=== PATIENT | male | born 1995 | race Caucasian/White ===

== ENCOUNTER → 2021-07-01 | Outpatient (CLI) | payer OTHER, MEDICAID, SELFPAY | END | disposition home or self-care (01) | LOC: LABSPEC 14:22 | PROVIDERS: Referring Provider Physician Assistant; Visit Provider Physician Assistant | DX: Z11.52 Encounter for screening for COVID-19 (principal) | CPT/HCPCS: 87635; U0005; U0003 ==

== ENCOUNTER 2021-08-20 18:59 | Emergency (ER) | payer MEDICAID, SELFPAY ==
[2021-08-20 19:00] VITALS: BP 151/88; PULSE 93; RESP 16; TEMP 36.8; O2SAT 98; BMI 32.7
--- NOTE | 2021-08-20 19:33 | EX.ED.DYSGE1 ---
HPI History of Present Illness Chief Complaint: Rash Narrative Narrative: Patient is a 26-year-old male who states he was chopping firewood and then developed a rash to his arms and legs and a little bit across his face and abdomen. He states that he has been trying topical creams with minimal symptom improvement and secondary to this comes in for evaluation. He denies any new exposure other than the environmental exposure and otherwise has no fevers chills chest pain or shortness of breath. PFSH PFSH Medical History no medical history no medical history Home Medications prednisone 10 mg PO DAILY #45 tab 08/20/21 [Rx Last Taken Unknown] Allergy/AdvReac Type Severity Reaction Status Date / Time No Known Allergies Allergy Verified 08/20/21 19:00 Social History Smoking Status: Unknown if ever smoked ROS ROS ED Constitutional Constitutional ED: Denies chills or fever(s) ENT ENT ED: Denies sore throat Cardiovascular Cardiovascular: Denies chest pain Respiratory/Chest Respiratory/Chest: Denies cough or dyspnea Gastrointestinal Gastrointestinal: Denies abdominal pain, diarrhea, nausea or vomiting Genitourinary Genitourinary ED: Denies dysuria Musculoskeletal Musculoskeletal: Denies myalgias Integumentary Reports rash Neurologic Neurologic: Denies headache(s) EXAM Physical Exam Const Vital Signs: 08/20/21 19:00 Temperature 98.3 F Temperature Source Temporal Pulse Rate 93 Respiratory Rate 16 Blood Pressure 151/88 H Blood Pressure Mean 109 Pulse Ox 98 Oxygen Delivery Method Room Air Positive well nourished and well developed General Appearance ED: well developed HEENT Reports moist mucous membranes HEENT Narrative: No tongue or lip swelling no oral lesions no airway edema or compromise Eyes PERRL and EOMs intact bilaterally Neck supple Resp normal respiratory effort and clear to auscultation bilaterally Cardio regular rate and regular rhythm Extremity normal to inspection Neuro oriented x3 and CN's II-XII intact bilaterally Sensorium / Orientation: alert Motor Exam: strength 5/5 throughout Psych mental status grossly normal Skin Skin Narrative: Patient has diffuse blanchable erythema with vesicular changes across his bilateral arms lower legs and scant areas along his lower abdomen most consistent with contact dermatitis. No obvious abscess formation or cellulitis. No involvement of the palms or soles MDM MDM MDM Narrative Medical decision making narrative: Patient presented to the ER in no acute respiratory distress with no airway edema or compromise. His history and exam is consistent with contact dermatitis. Therefore at this time he will be given a Kenalog shot and placed on a prednisone taper but is otherwise safe for discharge with no secondary changes to suggest respiratory distress or systemic infection Discharge Plan Triage Chief Complaint: Rash ED Provider: Jack Pascal Dx/Rx/DC Orders Clinical Impression: Contact dermatitis Instructions: ED Contact Dermatitis Prescriptions: New prednisone 10 mg tablet 10 mg PO DAILY Qty: 45 RF: 0 Primary Care Provider: Donna Rodriguez,Out of Referrals: [facility] Doctor,Out of [Primary Care Provider] - Disposition Disposition: Home, Self Care
[2021-08-20] MEDS: Triamcinolone Acetonide 40 MG/ML Vial 80 MG IM (19:47)
[2021-08-20 20:05] VITALS: BP 151/92; PULSE 89
== END 2021-08-20 20:08 | disposition home or self-care (01) ==
LOC: ED 19:44
PROVIDERS: Emergency Provider Emergency Medicine; PCP Student in an Organized Health Care Education/Training Program
DX: L25.9 Unspecified contact dermatitis, unspecified cause (principal)
CPT/HCPCS: 96372; 99282

== ENCOUNTER 2025-07-01 20:22 | Emergency (ER) | payer MEDICAID, SELFPAY ==
--- OUTSIDE RECORDS SUMMARY | 2025-04-19 08:14 | XMS RPT_ITS ---
Author Name Auto Generated Organization [facility] Care Team Providers Care Human Service Technician Name Role Phone SELF Referring Unavailable BRIAN LAI Attending Unavailable MOLLY PRECIADO SPRUE CUTTING PRESS OPERATOR%NUTRIENT MANAGEMENT SPECIALIST Attending UnavailMOLLY Meehan SPRUE CUTTING PRESS OPERATOR%NUTRIENT MANAGEMENT SPECIALIST Primary Care UnavailMOLLY Meehan SPRUE CUTTING PRESS OPERATOR%NUTRIENT MANAGEMENT SPECIALIST Admitting UnavailLEEANNA Suarez MD Consulting Unavailable PROVIDER, UNKNOWN Consulting Unavailable PROVIDER, UNKNOWN Consulting Unavailable PROBLEMS DATE TYPE CONDITION / CODE ATTENDING STATUS [facility] 04/19/2025 Active Viral gastroente ritis / A08.4(ICD-10) BRIAN LAI Active [facility] 04/19/2025 Active Diarrhea, unspec ified type / R19.7(ICD-10) BRIAN LAI Active [facility] 04/19/2025 Active Nausea / R11.0(ICD-10) KASANDRA LAI Active [facility] PROCEDURES No Procedure Records Found RESULTS PROGRESS Observed: 04/19/2025 8:46 AM Status: COMPLETED Source: [facility] HNO ID: [id number] Author: BRIAN LAI DO Service: ? Author Type: Physician Type: Progress Notes Filed: 04/19/2025 09:14 Note Text: [facility] KEVIN Subjective Feng Mijares is a 30 year old male. 30 yo M presents with N/V/D x2 days. Pt states he had 5 episodes of diarrhea this morning, coming out watery. He states anytime he eats or drinks anything it will come right out. No new foods, no recent travel, no known exposures to food poisoning. He had [employer] on Tuesday. Pt states he threw up twice yesterday morning, no other episodes of vomiting. The history is provided by the patient. Review of Systems Constitutional: Negative for fatigue and fever. Gastrointestinal: Positive for diarrhea and nausea. Negative for abdominal pain and blood in stool. Neurological: Negative for dizziness and light-headedness. Objective BP 114/78 (BP Site: Left Arm, BP Position: Sitting, BP Cuff Size: Large Adult) Pulse 76 Temp 36.8 ?C (98.3 ?F) (Temporal) Ht 198.1 cm (6' 6) Wt 127.2 kg (280 lb 5 oz) SpO2 98% BMI 32.39 kg/m? Physical Exam Vitals and nursing note reviewed. Constitutional: General: He is not in acute distress. Appearance: Normal appearance. He is not ill-appearing, toxic-appearing or diaphoretic. HENT: Head: Normocephalic and atraumatic. Eyes: Extraocular Movements: Extraocular movements intact. Pulmonary: Effort: Pulmonary effort is normal. No respiratory distress. Neurological: General: No focal deficit present. Mental Status: He is alert and oriented to person, place, and time. Psychiatric: Behavior: Behavior normal. {ASSESSMENT/PLAN: 1. Viral gastroenteritis - ICD9: 008.8, ICD10: A08.4 (primary diagnosis) Patient does not have any risk factors for Salmonella, E. coli, norovirus, parasitic diarrheal infection. His symptoms are not consistent with IBS or IBD. I believe he has a viral GE. - Advised patient these types of stomach bugs are self-limiting, and should resolve within 72 hours - Will give Zofran to help slow down diarrhea and treat nausea so patient can stay hydrated - If unable to keep fluids down or in and started to get signs of dehydration, go to the emergency room for IV treatments - If diarrhea persists over the weekend, follow-up with PCP or return urgent care to submit a stool culture to [facility] for other types of diarrheal illnesses - Patient agrees with plan of care - Work note given - ONDANSETRON 4 MG DISINTEGRATING TABLET 2. Diarrhea, unspecified type - ICD9: 787.91, ICD10: R19.7 3. Nausea - ICD9: 787.02, ICD10: R11.0 - ONDANSETRON 4 MG DISINTEGRATING TABLET Brian Lai DO Differential Diagnoses - Viral gastroenteritis - Food poisoning is less likely for the following reason(s): HANDP not suggestive - Parasitic diarrhea is less likely for the following reason(s): HANDP not suggestive - IBS is less likely for the following reason(s): HANDP not suggestive - IBD is less likely for the following reason(s): HANDP not suggestive Additional Tests or Interventions The following testing was considered but ultimately not selected after discussion with patient/family: Stool culture. Symptoms have been ongoing x 48 hours and are improving, suspect viral GE. Disposition The patient was discharged. Procedures CNOV Observed: 04/19/2025 8:15 AM Status: COMPLETED Source: [facility] Office Visit ([facility]) MARYANAFENG R ([id number]) 1995 M Date Time Provider Department 04/19/25 8:15 AM BRIAN LAI [facility] During your visit today, we recorded the following information about you: Temperature Pulse Blood pressure Weight 98.3 degrees 76/minute 114/78 127.2 kg Height 1.981 m Brian Lai DO 04/19/2025 9:14 AM Signed [facility] Subjective Feng Mijares is a 30 year old male. 30 yo M presents with N/V/D x2 days. Pt states he had 5 episodes of diarrhea this morning, coming out watery. He states anytime he eats or drinks anything it will come right out. No new foods, no recent travel, no known exposures to food poisoning. He had D[employer] Aragon on Tuesday. Pt states he threw up twice yesterday morning, no other episodes of vomiting. The history is provided by the patient. Review of Systems Constitutional: Negative for fatigue and fever. Gastrointestinal: Positive for diarrhea and nausea. Negative for abdominal pain and blood in stool. Neurological: Negative for dizziness and light-headedness. Objective BP 114/78 (BP Site: Left Arm, BP Position: Sitting, BP Cuff Size: Large Adult) Pulse 76 Temp 36.8 ?C (98.3 ?F) (Temporal) Ht 198.1 cm (6' 6) Wt 127.2 kg (280 lb 5 oz) SpO2 98% BMI 32.39 kg/m? Physical Exam Vitals and nursing note reviewed. Constitutional: General: He is not in acute distress. Appearance: Normal appearance. He is not ill-appearing, toxic-appearing or diaphoretic. HENT: Head: Normocephalic and atraumatic. Eyes: Extraocular Movements: Extraocular movements intact. Pulmonary: Effort: Pulmonary effort is normal. No respiratory distress. Neurological: General: No focal deficit present. Mental Status: He is alert and oriented to person, place, and time. Psychiatric: Behavior: Behavior normal. {ASSESSMENT/PLAN: 1. Viral gastroenteritis - ICD9: 008.8, ICD10: A08.4 (primary diagnosis) Patient does not have any risk factors for Salmonella, E. coli, norovirus, parasitic diarrheal infection. His symptoms are not consistent with IBS or IBD. I believe he has a viral GE. - Advised patient these types of stomach bugs are self-limiting, and should resolve within 72 hours - Will give Zofran to help slow down diarrhea and treat nausea so patient can stay hydrated - If unable to keep fluids down or in and started to get signs of dehydration, go to the emergency room for IV treatments - If diarrhea persists over the weekend, follow-up with PCP or return urgent care to submit a stool culture to [facility] for other types of diarrheal illnesses - Patient agrees with plan of care - Work note given - ONDANSETRON 4 MG DISINTEGRATING TABLET 2. Diarrhea, unspecified type - ICD9: 787.91, ICD10: R19.7 3. Nausea - ICD9: 787.02, ICD10: R11.0 - ONDANSETRON 4 MG DISINTEGRATING TABLET Brian Lia DO Differential Diagnoses - Viral gastroenteritis - Food poisoning is less likely for the following reason(s): HANDP not suggestive - Parasitic diarrhea is less likely for the following reason(s): HANDP not suggestive - IBS is less likely for the following reason(s): HANDP not suggestive - IBD is less likely for the following reason(s): HANDP not suggestive Additional Tests or Interventions The following testing was considered but ultimately not selected after discussion with patient/family: Stool culture. Symptoms have been ongoing x 48 hours and are improving, suspect viral GE. Disposition The patient was discharged. Procedures Mike BrianDO 04/19/2025 8:52 AM Signed DI[facility] Diarrhea can be caused by many different conditions. The most common cause is viral illness. Food poisoning, bacterial infection, and reactions to medicine (especially antibiotics and antacids) may also be the cause. Most of the time diarrhea improves after 2-3 days of rest and oral fluid replacement. You should drink enough clear fluids (water, sodas, Gatorade) to prevent dehydration. Adults must drink at least 2-3 quarts daily. Solid foods and dairy products must be avoided until your illness improves; then only small amounts may be included in your diet for several days. Medicine to control cramping and diarrhea may be helpful. If you have a fever or blood in the stool, however, these medicines should be avoided as they may prolong your illness. Antibiotics can speed recovery from diarrhea due to some bacterial infections, but may cause complications. Please call your doctor or the emergency department if your diarrhea does not get better in 3 days, or if you have fever, blood in the stool, vomiting, or become more dehydrated. Patient presents with: Nausea: Feng is here for nausea, diarrhea and vomiting 3x days. I recommend you follow up with your Primary Care Provider (Physician, Nurse Practitioner, or Physician Home Care Consultant). YOU SHOULD SEEK MEDICAL ATTENTION IMMEDIATELY AT THE NEAREST EMERGENCY DEPARTMENT IF ANY OF THE FOLLOWING OCCURS Call 911 if you have chest pain, heaviness or discomfort Fever (temperature higher than 100.4? F / 38? C) and it doesn't go away or gets worse after 2-3 days of antibiotics Unusual or increasing pain Lightheadedness Feeling sicker at any time or not getting better as expected Can't catch your breath or have shortness of breath Were seen for eye problems and have eye pain, changes/blurring of vision, or the light hurts your eyes and/or you have a fever Were seen for wound/skin infection issues and your wound/infection has increasing redness/swelling/pain, red streaking towards your heart, or green/yellow drainage Were seen for a headache and have any worsening of headache/dizziness or you develop a stiff neck or any other concerns about your headache Were seen for stomach/abdominal complaints and your diarrhea/vomiting/pain worsens and/or you don't urinate in an 8 hour period of time Develop swelling of your lips/face/tongue/throat or think you are having an allergic reaction to any medications Please read all pharmacy handouts regarding possible medication side effects and/or adverse reactions. Call your Primary Care Provider with any questions or concerns. Follow up with your Primary Care Provider if you require any follow up care. Urgent/Express Care and Walk In Clinics do not provide follow up care. Referring Provider: SELF [[id number]] Allergies As of Date: 04/19/2025 (No Known Allergies) Date Reviewed: 04/19/2025 Reviewed by: Brian Lai DO - Fully Assessed Reason for Visit: Nausea [70] Cmt: Feng is here for nausea, diarrhea and vomiting 3x days. Primary Visit Diagnosis:Viral gastroenteritis [A08.4] Other Visit Diagnoses:Diarrhea, unspecified type [R19.7] Nausea [R11.0] Order(s):ondansetron orally disintegrating (ZOFRAN ODT) 4 mg disintegrating tabletTake 1 tablet by mouth every 8 hours as needed for nausea/vomiting.Disp: 30 tabletRfl: 0 Prescriptions as of 04/19/2025 - ondansetron orally disintegrating (ZOFRAN ODT) 4 mg disintegrating tablet Take 1 tablet by mouth every 8 hours as needed for nausea/vomiting. Problem List As Of Date: 04/19/2025 (None) Other instructions from your clinician: DIARRHEA Diarrhea can be caused by many different conditions. The most common cause is viral illness. Food poisoning, bacterial infection, and reactions to medicine (especially antibiotics and antacids) may also be the cause. Most of the time diarrhea improves after 2-3 days of rest and oral fluid replacement. You should drink enough clear fluids (water, sodas, Gatorade) to prevent dehydration. Adults must drink at least 2-3 quarts daily. Solid foods and dairy products must be avoided until your illness improves; then only small amounts may be included in your diet for several days. Medicine to control cramping and diarrhea may be helpful. If you have a fever or blood in the stool, however, these medicines should be avoided as they may prolong your illness. Antibiotics can speed recovery from diarrhea due to some bacterial infections, but may cause complications. Please call your doctor or the emergency department if your diarrhea does not get better in 3 days, or if you have fever, blood in the stool, vomiting, or become more dehydrated. Patient presents with: Nausea: Feng is here for nausea, diarrhea and vomiting 3x days. I recommend you follow up with your Primary Care Provider (Physician, Nurse Practitioner, or Physician Home Care Consultant). YOU SHOULD SEEK MEDICAL ATTENTION IMMEDIATELY AT THE NEAREST EMERGENCY DEPARTMENT IF ANY OF THE FOLLOWING OCCURS Call 911 if you have chest pain, heaviness or discomfort Fever (temperature higher than 100.4? F / 38? C) and it doesn't go away or gets worse after 2-3 days of antibiotics Unusual or increasing pain Lightheadedness Feeling sicker at any time or not getting better as expected Can't catch your breath or have shortness of breath Were seen for eye problems and have eye pain, changes/blurring of vision, or the light hurts your eyes and/or you have a fever Were seen for wound/skin infection issues and your wound/infection has increasing redness/swelling/pain, red streaking towards your heart, or green/yellow drainage Were seen for a headache and have any worsening of headache/dizziness or you develop a stiff neck or any other concerns about your headache Were seen for stomach/abdominal complaints and your diarrhea/vomiting/pain worsens and/or you don't urinate in an 8 hour period of time Develop swelling of your lips/face/tongue/throat or think you are having an allergic reaction to any medications Please read all pharmacy handouts regarding possible medication side effects and/or adverse reactions. Call your Primary Care Provider with any questions or concerns. Follow up with your Primary Care Provider if you require any follow up care. Urgent/Express Care and Walk In Clinics do not provide follow up care. Prescriptions ordered this encounter Disp Refills Start End ONDANSETRON 4 MG DISINTEGRATING TABL* 30 t* 0 04/19/2025 Route: PO Sig: Take 1 tablet by mouth every 8 hours as needed for nausea/vomiting. Level of Service: OFFICE/OUTPATIENT ESTABLISHED LOW MDM 20 MIN [[id number]] Letter Text Encounter Status:Closed by BRIAN LAI on 04/19/25 ALLERGIES DATE TYPE / CODE NAME / CODE REACTION SEVERITY SOURCE Drug Class/[id number] (SNOMED CT) NO KNOWN ALLERGIES [facility] Drug Allergy/5604703 02(SNOMED CT) DIPHENHYDRAMINE/0000 0333(RXNORM) Moderate (Severity Modifier) (Qualifier Value) [facility] ENCOUNTERS ADMIT/DISCHARGE ACCOUNT NUMBER ADMITTING ENCOUNTER CLASS LOCATION SOURCE 04/19/2025/ 5 [id number] Ambulatory [id number] ilding:[facility] 08/27/2024 [id number] MOLLY PRECIADO SPRUE CUTTING PRESS OPERATOR%NUTRIENT MANAGEMENT SPECIALIST Ambulatory Building:[facility] PAYERS ENCOUNTER GUARANTOR PAYER SUBSCRIBER SOURCE 08/27/2024 FENG SAMANIEGO: [id number] [address] [address]Wgu: () Primary Insurance:[facility] Number: [id number] Date:Plan Name:X3 FENG SAMANIEGO: [id number] [address] [address] [facility]
[2025-07-01 20:22] VITALS: BP 153/91; PULSE 106; RESP 16; TEMP 36.6; O2SAT 98; BMI 35.2
--- NOTE | 2025-07-01 20:49 | RAD_ITS ---
PROCEDURE: KNEE 4 OR MORE VIEWS 07/01/2025 REASON FOR EXAM: PAIN/INJURY TECHNIQUE: Procedure Code: RADKN Modality: DX Procedure: KNEE 4 OR MORE VIEWS Laterality: FINDINGS: No evidence of acute fracture or dislocation. The joint spaces are maintained. No knee joint effusion. Prepatellar soft tissue swelling which may represent bursitis. RAD/Knee 4 or More Views IMPRESSION: No acute osseous abnormalities. Prepatellar soft tissue swelling which may represent bursitis. Reading Location: [id number]
--- NOTE | 2025-07-01 20:49 | RAD_ITS ---
PROCEDURE: KNEE 4 OR MORE VIEWS 07/01/2025 REASON FOR EXAM: PAIN/INJURY TECHNIQUE: Procedure Code: RADKN Modality: DX Procedure: KNEE 4 OR MORE VIEWS Laterality: FINDINGS: No evidence of acute fracture or dislocation. The joint spaces are maintained. No knee joint effusion. RAD/Knee 4 or More Views IMPRESSION: No acute osseous abnormalities. Reading Location: [id number]
--- NOTE | 2025-07-02 00:07 | ED.VIS.LOWEX ---
HPI History of Present Illness Chief Complaint: Lower Extremity Injury Narrative Narrative: Patient is a 30-year-old male presenting emergency department for left knee pain. Patient states that he was at work today and he twisted his left knee and felt a pop. He denies any other injuries. He was able to ambulate afterwards. States that he has been having right knee pain for the past few months but this is actually resolved over the past few weeks. He is not taking anything for pain. Denies any numbness or weakness in his legs. Denies any back pain. PFS PFS Home Medications ?Medication ?Instructions ?Recorded ?Last Taken ?Type prednisone 10 mg tablet 10 mg PO DAILY #45 tabs 08/20/21 Unknown Rx ibuprofen 600 mg tablet 600 mg PO Q8H PRN PRN pain #20 07/02/25 Unknown Rx TABLETS Allergy/AdvReac Type Severity Reaction Status Date / Time No Known Allergies Allergy Verified 07/01/25 20:22 Social History Smoking Status: Current every day smoker tobacco type: cigarettes ROS ROS ED ROS Narrative see HPI EXAM Physical Exam Narrative Exam Narrative: Vital signs: Reviewed General: Alert and oriented x 3. No acute distress HEENT: Head is normocephalic and atraumatic, sinuses nontender, pupils equal round and reactive. Nares are patent. Oropharynx and throat exams normal. Neck: Supple without lymphadenopathy nontender Cardiovascular: Regular rate and rhythm, no murmurs. No rubs or gallops. Normal S1 and S2 Respiratory: Clear to auscultation bilaterally. No wheezes, rales, rhonchi Abdominal: Soft and nontender. Normal bowel sounds. No guarding or rebound. Nonsurgical abdomen Extremities: There are some mild tenderness palpation of the left medial portion of the knee. No tenderness to palpation of the patella. No obvious deformities. No tenderness to palpation of the popliteal region. Negative anterior and posterior drawer test. Negative Ana test. No tenderness to palpation of the left hip, femur, tib-fib, ankle or foot. DP and PT pulses are intact bilaterally. Motor and sensation are intact. There is no tenderness to palpation of the right knee. Skin: No rash or redness. Neurological: Cranial nerves II through XII are grossly intact. Normal strength and sensation. Normal cerebellar function The rest of the physical exam is unremarkable Const Vital Signs: 07/01/25 20:22 Temperature 97.8 F Temperature Source Oral Pulse Rate 106 H Respiratory Rate 16 Blood Pressure 153/91 H Blood Pressure Mean 111 Pulse Ox 98 MDM MDM MDM Narrative Medical decision making narrative: Patient is a 30-year-old male presenting to the emergency department for a left knee injury that occurred today. Patient was seen and examined. Vitals are stable. Patient resting in bed comfortably no acute distress. Differential includes but is not limited to: Ligament strain, fracture, dislocation Patient states that he felt his knee pop. He states there was no deformity to the knee. No obvious deformity on exam. No concern for dislocation. Unlikely to be fractured given the injury type. Likely a strain of one of the ligaments. He has negative anterior, posterior drawer test as well as Ana test. X-rays were ordered prior to my evaluation of the patient. X-rays were reviewed by myself. No fracture or dislocation seen on either x-ray on my review. Radiology read with no acute osseous abnormalities on either. There is prepatellar soft tissue swelling which may represent bursitis on the right knee x-ray. Normal range of motion. Able to flex and extend at the knee and hip, not concern for a quadriceps tear. Patient was offered something for analgesia here however he declines. Patient and significant other at bedside were updated on the negative imaging findings as well as the bursitis on the right. They were offered crutches as well as Cristhian wrap for symptomatic control at home. They were agreeable. Asked for prescription for Motrin to be sent to their pharmacy. They were given RICE instructions. Given orthopedic follow-up if he has continued pain in 1 week. Patient discharged from the Emergency Department. I do not feel that the patient's evaluation reveals any acute reason for admission at this time. I instructed them to either follow-up with their primary care physician or promptly return to the Emergency Department for reevaluation should symptoms worsen or new symptoms develop. I explained what symptoms would indicate the need to return to the emergency department. Shared decision making was used. The patient voiced understanding of the treatment plan and is agreeable with it. Clinical impression Left knee strain Bursitis Radiography X-Ray: Read by ED Physician, Normal and No Fracture Diagnostic Testing: Clinical Impression(s) from Imaging Studies Knee X-Ray 07/01/25 20:49 IMPRESSION: No acute osseous abnormalities. Prepatellar soft tissue swelling which may represent bursitis. Reading Location: [facility] Knee X-Ray 07/01/25 20:49 IMPRESSION: No acute osseous abnormalities. Reading Location: [facility] Discharge Plan Triage Chief Complaint: Lower Extremity Injury ED Provider: Nicolette Gibson Dx/Rx/DC Orders Clinical Impression: Knee strain Instructions: ED Knee Sprain, ED RICE Prescriptions: New ibuprofen 600 mg tablet 600 mg PO Q8H PRN PRN (Reason: pain) Qty: 20 0RF No Action prednisone 10 mg tablet 10 mg PO DAILY Qty: 45 0RF Rx Instructions: 5 pills po days 1-3 4 pills po days 4-6 3 pills po days 7-9 2 pills po days 10-12 1 pill po days 13-15 Primary Care Provider: Miriam Boateng Referrals: Neel Metz DO [Med Staff - Active Staff, Orthopedics] - 1 Week if not improving Miriam Boateng MD [Primary Care Provider, Internal Medicine] - 2 Days Activity Restrictions/Additional Instructions: Your evaluation in the Emergency Department did not reveal any acute reason for admission. However, I want to emphasize that you may be early in the course of a disease process or illness even if it is not present. For this reason you should follow-up within 24 hours for reevaluation with either your primary care physician or if necessary back here in the Emergency Department. You should return to the Emergency Department immediately if your symptoms worsen or new symptoms develop. Print Language: Pakistani Disposition Disposition: Home, Self Care
[2025-07-02 00:28] VITALS: TEMP 37.1
== END 2025-07-02 00:29 | disposition home or self-care (01) ==
PROVIDERS: Emergency Provider Student in an Organized Health Care Education/Training Program; PCP Student in an Organized Health Care Education/Training Program; Visit Provider Student in an Organized Health Care Education/Training Program
DX: S83.92XA Sprain of unspecified site of left knee, initial encounter (principal); X50.1XXA Overexertion from prolonged static or awkward postures, initial encounter; M70.51 Other bursitis of knee, right knee; F17.210 Nicotine dependence, cigarettes, uncomplicated
CPT/HCPCS: 73564; 99283